=== PATIENT | male | born 1990 | race Caucasian/White ===

== ENCOUNTER 2024-01-09 10:29 | Emergency (ER) | payer OTHER, SELFPAY ==
[2024-01-09 10:50] VITALS: BP 136/100; PULSE 93; RESP 16; TEMP 36.3; O2SAT 100
[2024-01-09] MEDS: SODIUM CHLORIDE 0.9% IV 1,000 ML 999 ML IV CONT (11:51)
[2024-01-09] MEDS: diphenhydrAMINE HCl INJ 50 MG/ML VIAL 25 MG IV PUSH (11:52)
[2024-01-09] MEDS: KETOROLAC 30 MG/ML VIAL (*BKC) IV PUSH (11:55)
[2024-01-09] MEDS: METOCLOPRAMIDE HCL INJ 10 MG/2 ML VIAL IV PUSH (11:55)
[2024-01-09 11:57] VITALS: BP 136/91; PULSE 78; RESP 14; O2SAT 100
--- NOTE | 2024-01-09 12:28 | ED_ITS ---
HPI - Headache General Chief Complaint: Headache Stated Complaint: HEADACHE Time Seen by Provider: 01/09/24 11:07 History of Present Illness HPI Narrative: Patient is a 33-year-old male who presents ER with migraine headache. Has history of migraines. Has been taking Tylenol and Excedrin without improvement. Patient recently had a food poisoning episode that likely provoked this illness. He still has nausea but no diarrhea. No fevers or chills. No abdominal discomfort Related Data Allergies Allergy/AdvReac Type Severity Reaction Status Date / Time No Known Allergies Allergy Mild Verified 01/09/24 11:18 Review of Systems Constitutional: Constitutional: Reports no additional constitutional complaints ENT: Reports system reviewed and no additional complaints, except as documented Gastrointestinal: Gastrointestinal: Reports no additional gastrointestinal complaints Neurologic: Reports system reviewed and no additional complaints, except as documented PMFSH Past Medical History Medical History (Updated 01/09/24 @ 12:31 by Greg Vasquez MD) Migraine headache Surgical History Surgical History (Updated 01/09/24 @ 12:30 by Greg Vasquez MD) No history of previous surgery Exam Narrative: GENERAL: Well-appearing, well-nourished, and in no acute distress. HEAD: Normocephalic, atraumatic. ENT: Mucous membranes moist. CHEST: Clear to auscultation. No respiratory distress. HEART: Regular rate and rhythm. Normal peripheral pulses. EXTREMITIES: Normal range of motion. No edema. SKIN: Warm, dry, no rash. NEURO: Alert and oriented x3. PSYCH: Normal mood and affect. Course Course Emergency Course: Headache improved with Reglan/Benadryl/ Toradol /fluids. Vital Signs Vital signs: Vital Signs Temperature 97.3 F L 01/09/24 10:50 Pulse Rate 93 01/09/24 10:50 Respiratory Rate 16 01/09/24 10:50 Blood Pressure 136/100 H 01/09/24 10:50 Pulse Oximetry 100 01/09/24 10:50 Oxygen Delivery Room Air 01/09/24 10:50 Temperature 97.3 F L 01/09/24 10:50 Pulse Rate 78 01/09/24 11:57 Respiratory Rate 14 01/09/24 11:57 Blood Pressure 136/91 H 01/09/24 11:57 Pulse Oximetry 100 01/09/24 11:57 Oxygen Delivery Room Air 01/09/24 10:50 Discharge Plan Discharge Clinical Impression: Headache Patient Disposition: Home, Self-Care Condition: Stable Instructions: Migraine Headache (ED) Additional Instructions: return the ER if you have fever 100.4? F, he cannot keep down food water, you lose consciousness, or have additional concerns. Follow-up/Referrals: Tay Venegas DO [Physician] - 1 Week PHYSICIAN,GAR[employer]PERATOR HELPER [Primary Care Provider] -
[2024-01-09 12:32] VITALS: BP 147/85; PULSE 66; RESP 14; O2SAT 99
[2024-01-09 12:57] VITALS: BP 122/80; PULSE 83; RESP 14; O2SAT 99
== END 2024-01-09 12:58 | disposition home or self-care (01) ==
PROVIDERS: Emergency Provider Emergency Medicine
DX: R51.9 Headache, unspecified (principal)
CPT/HCPCS: 96361; 96374; 96375; 99284; J1200; J1885; J2765; J7030